=== PATIENT | female | born 1965 | race African-American/Black ===

== ENCOUNTER 2018-01-25 10:17 | Emergency (ER) | payer BC, SELFPAY ==
[2018-01-25 10:17] VITALS: BP 123/80; PULSE 91; RESP 14; TEMP 36.6; O2SAT 100; BMI 26.8
--- NOTE | 2018-01-25 10:42 | ED.VISSUMM ---
- ER Visit Summary Date of Service: 01/25/18 Chief Complaint: Back pain History of Present Illness: The patient is a 52 F with a 10 day history of right lower back pain that radiates down her right leg. She denies any known injury or change in activity. She states she does have sharp pain that radiates down her right leg. She feels a burning sensation. She has been taking idzh-gyi-jjihndh medications without improvement. Patient had no fever or chills. She has had no problems with bowel or bladder control. She has no abdominal pain. Physical Examination: Vital signs are unremarkable. Patient sitting on the side of the bed. She is in no acute distress. Head and neck examination is unremarkable. Heart is regular rate and rhythm. Lung sounds are clear. Abdomen is soft and nontender. Back examination reveals no midline thoracic or lumbar tenderness. She has reproducible tenderness in the right low lumbar paraspinals and over the right sciatic notch. Neuro exam reveals 2+ bilateral patellar reflexes with normal strength testing. She reports a very minimal decrease in sensation on testing of right leg versus left. Strong distal pulses are noted throughout. Test Results: [] Emergency Department Course and Treatment: Patient is given Naprosyn and prednisone here. She did drive herself to the emergency room. She be given a prescription for Naprosyn, Flexeril, lidocaine patches, and prednisone. Patient is to follow-up with her primary care physician in the next 1 week. She is to return for worsening symptoms or any other concerns. Treatment Plan: [] Disposition: Discharge Impression: Lumbar radiculopathy This note was generated with [employer] dictation software. It may contain incorrect words, spelling, and punctuation that were not noted in review of the chart prior to signing ED Disposition - Plan for ED Patient: Chief Complaint: Back Referrals: Dario Baptiste MD [Primary Care Provider] -
--- NOTE | 2018-01-25 10:45 | ED.DCSUM_ITS ---
- ER Visit Summary Date of Service: 01/25/18 Chief Complaint: Back pain History of Present Illness: The patient is a 52 F with a 10 day history of right lower back pain that radiates down her right leg. She denies any known injury or change in activity. She states she does have sharp pain that radiates down her right leg. She feels a burning sensation. She has been taking ybaz-pwu-dnxkokq medications without improvement. Patient had no fever or chills. She has had no problems with bowel or bladder control. She has no abdominal pain. Physical Examination: Vital signs are unremarkable. Patient sitting on the side of the bed. She is in no acute distress. Head and neck examination is unremarkable. Heart is regular rate and rhythm. Lung sounds are clear. Abdomen is soft and nontender. Back examination reveals no midline thoracic or lumbar tenderness. She has reproducible tenderness in the right low lumbar paraspinals and over the right sciatic notch. Neuro exam reveals 2+ bilateral patellar reflexes with normal strength testing. She reports a very minimal decrease in sensation on testing of right leg versus left. Strong distal pulses are noted throughout. Test Results: [] Emergency Department Course and Treatment: Patient is given Naprosyn and prednisone here. She did drive herself to the emergency room. She be given a prescription for Naprosyn, Flexeril, lidocaine patches, and prednisone. Patient is to follow-up with her primary care physician in the next 1 week. She is to return for worsening symptoms or any other concerns. Treatment Plan: [] Disposition: Discharge Impression: Lumbar radiculopathy This note was generated with [employer] dictation software. It may contain incorrect words, spelling, and punctuation that were not noted in review of the chart prior to signing ED Disposition - Plan for ED Patient: Chief Complaint: Back Referrals: Dario Baptiste MD [Primary Care Provider] -
--- NOTE | 2018-01-25 10:45 | ED.DEP ---
ED Disposition - Plan for ED Patient: Disposition: Home or Assisted Living Chief Complaint: Back Instructions: ED Sciatica Prescriptions: Naproxen [Naprosyn] 500 mg PO BID PRN #20 tablet Prednisone [Deltasone] 40 mg PO DAILY #10 tablet Lidocaine [Lidoderm] 1 each TP BID PRN #7 adh..patch PRN Reason: Pain Cyclobenzaprine [Flexeril] 10 mg PO TID PRN #20 tablet PRN Reason: Muscle Spasm Referrals: Dario Baptiste MD [Primary Care Provider] - 1 Week
[2018-01-25] MEDS: Naproxen 500 MG Tablet PO (10:53)
[2018-01-25] MEDS: predniSONE 20 MG Tablet 60 MG PO (10:53)
[2018-01-25 10:54] VITALS: BP 125/86; PULSE 82; RESP 16; O2SAT 98
== END 2018-01-25 10:58 | disposition home or self-care (01) ==
PROVIDERS: Emergency Provider Emergency Medicine; Family Provider Family Medicine; PCP Family Medicine
DX: M54.16 Radiculopathy, lumbar region (principal); Z72.0 Tobacco use; Z79.899 Other long term (current) drug therapy
CPT/HCPCS: 99282

== ENCOUNTER 2018-06-15 06:51 | Emergency (ER) | payer BC, SELFPAY ==
[2018-06-15 06:51] VITALS: BP 133/77; PULSE 116; RESP 16; TEMP 38; O2SAT 93; BMI 29.7
--- NOTE | 2018-06-15 07:03 | RAD_ITS ---
STUDY: X-RAY CHEST REASON FOR EXAM: Female, 53 years old. Cough, fever and general illness for one week. TECHNIQUE: PA and lateral views of the chest. COMPARISON: November 08, 2014. FINDINGS: The lungs are clear and hyperexpanded. There is no demonstrated pleural abnormality. There is borderline cardiomegaly. Normal mediastinum and kathy. There is prominence of the pulmonary hilar arteries without peripheral pulmonary vascular congestion. Normal visualized aortic arch and descending thoracic aorta. Normal visualized thoracic spine. Normal visualized ribs, clavicles, and shoulders. There is no demonstrated abnormality of the visualized soft tissue structures of the upper abdomen. RAD/Chest PA and Lateral IMPRESSION: No radiographic evidence of acute cardiopulmonary disease. Electronically Signed: Tala Patricia MD at 8:10 EDT , Service support ,
[2018-06-15 07:10] VITALS: PULSE 102; RESP 18
[2018-06-15] MEDS: Ipratropium/Albuterol Sulfate 3 ML AMPUL.NEB INHALATION (07:10)
[2018-06-15 07:35] LABS: Absolute Lymphocyte Count 2.77 X10^3/ul (0.83-4.51); Absolute Neutrophil Count 8.9 X10^3/uL (2.0-7.7); Basophil# 0.02 X10^3/uL; Basophil% 0.2 % (0-1); Hematocrit 39.1 % (37-47); Hemoglobin 13.4 g/dl (12.0-15.0); Lymphocyte # 2.77 X10^3/ul (4.0); Mean Corp Hgb Conc 34.3 g/gl (32-36); Mean Corpuscular Volume 96.3 fL (81-99); Mean Platelet Vol. 8.9 fl (6.2-12.0); Monocyte# 0.84 X10^3/uL; Monocyte% 6.7 % (0-10); Neutrophil # 8.91 X10^3/uL (2.7-7.7); Neutrophil % 70.8 % (47-70); Platelet Count 290 K/mm3 (150-450); RBC Distribution Width CV 13.6 % (11.6-14.6); RBC Distribution Width SD 47.1 fl (35.1-43.9); Red Blood Count 4.06 M/mm3 (4.2-5.4); White Blood Count 12.6 K/mm3 (4.4-11.0)
[2018-06-15 07:36] LABS: POSITIVE COUNT NO; POSITIVE DIFFERENTIAL NO; POSITIVE MORPHOLOGY NO
[2018-06-15] MEDS: Acetaminophen 500 MG Tablet 1000 MG PO (07:39)
[2018-06-15] MEDS: 0.9% Normal Saline 1,000 ML 1000 ML IV (07:40)
[2018-06-15 07:41] VITALS: BP 119/89; PULSE 99; RESP 17; O2SAT 98
[2018-06-15 07:44] LABS: Anion Gap 8 (5-15); BUN 11 mg/dL (7-18); BUN/Creat Ratio 13.6 RATIO (10-20); Calcium,Total 8.5 mg/dL (8.5-10.1); Chloride 103 mmol/L (98-107); Creatinine, Serum 0.81 mg/dL (0.55-1.02); EST Glomerular Filtration Rate 78 mL/min (>60); Est Glom Filt Rate - Afr Amer 94 mL/min (>60); Estimated Creatinine Clearance 62.07 ml/min; Glucose 103 mg/dL (74-106); Potassium 3.8 mmol/L (3.5-5.1); Sodium Level 139 mmol/L (136-145)
--- NOTE | 2018-06-15 08:02 | ED.VISSUMM ---
- ER Visit Summary Date of Service: 06/15/18 Chief Complaint: Feeling crappy History of Present Illness: The patient is a 53 F that has not been feeling well for over a week. She reports fevers, chills, sore throat, nausea, cough, and sputum. She has tried irng-jfe-bqjewpt remedies with minimal relief. She has a history of mitral valve prolapse and anemia. She is a smoker. Physical Examination: Blood pressure normal. Temperature 100.4 and heart rate 116. Respiratory rate 16 and 93% on room air. Patient appears well, sitting comfortably. Alert and oriented. HEENT exam unremarkable. Neck nontender with no lymphadenopathy. Heart slightly tachycardic but regular. Lungs show faint expiratory wheezing throughout all fry. Extremities nontender with no edema. Test Results: White count 12.6 otherwise CBC and BMP normal. Chest x-ray official read is pending, but there is no obvious abnormalities. Emergency Department Course and Treatment: Patient treated with a fluid bolus given her tachycardia. She also received a DuoNeb given her wheezing and some Tylenol given her low-grade fever. I believe this is an upper respiratory infection, but the patient is a smoker and her symptoms have persisted for over a week. Workup was pursued and fairly unremarkable. This is likely acute bronchitis. Given the duration of her symptoms, we did discuss antibiotics, and the patient will be placed on a course of doxycycline. Follow-up with her family doctor. Treatment Plan: As above Disposition: Discharged Impression: 1. Acute bronchitis This note was generated with [employer] dictation software. It may contain incorrect words, spelling, and punctuation that were not noted in review of the chart prior to signing ED Disposition - Plan for ED Patient: Chief Complaint: Cold Sx Referrals: Dario Baptiste MD [Primary Care Provider] -
--- NOTE | 2018-06-15 08:08 | ED.DCSUM_ITS ---
- ER Visit Summary Date of Service: 06/15/18 Chief Complaint: Feeling crappy History of Present Illness: The patient is a 53 F that has not been feeling well for over a week. She reports fevers, chills, sore throat, nausea, cough, and sputum. She has tried dqux-zso-ykbftia remedies with minimal relief. She has a history of mitral valve prolapse and anemia. She is a smoker. Physical Examination: Blood pressure normal. Temperature 100.4 and heart rate 116. Respiratory rate 16 and 93% on room air. Patient appears well, sitting comfortably. Alert and oriented. HEENT exam unremarkable. Neck nontender with no lymphadenopathy. Heart slightly tachycardic but regular. Lungs show faint expiratory wheezing throughout all fry. Extremities nontender with no edema. Test Results: White count 12.6 otherwise CBC and BMP normal. Chest x-ray official read is pending, but there is no obvious abnormalities. Emergency Department Course and Treatment: Patient treated with a fluid bolus given her tachycardia. She also received a DuoNeb given her wheezing and some Tylenol given her low-grade fever. I believe this is an upper respiratory infection, but the patient is a smoker and her symptoms have persisted for over a week. Workup was pursued and fairly unremarkable. This is likely acute bronchitis. Given the duration of her symptoms, we did discuss antibiotics, and the patient will be placed on a course of doxycycline. Follow-up with her family doctor. Treatment Plan: As above Disposition: Discharged Impression: 1. Acute bronchitis This note was generated with [employer] dictation software. It may contain incorrect words, spelling, and punctuation that were not noted in review of the chart prior to signing ED Disposition - Plan for ED Patient: Chief Complaint: Cold Sx Referrals: Dario Baptiste MD [Primary Care Provider] -
--- NOTE | 2018-06-15 08:08 | ED.DEP ---
ED Disposition - Plan for ED Patient: Chief Complaint: Cold Sx Instructions: ED Upper Resp Infec Abx Tx Prescriptions: Doxycycline Monohydrate 100 mg PO BID #20 cap Referrals: Dario Baptiste MD [Primary Care Provider] -
[2018-06-15 08:30] VITALS: BP 121/68; PULSE 108; RESP 17; O2SAT 98
== END 2018-06-15 08:34 | disposition home or self-care (01) ==
LOC: ED 07:34
PROVIDERS: Emergency Provider Emergency Medicine; Family Provider Family Medicine; PCP Family Medicine
DX: J20.9 Acute bronchitis, unspecified (principal); R00.0 Tachycardia, unspecified; F17.200 Nicotine dependence, unspecified, uncomplicated; Z86.2 Personal history of diseases of the blood and blood-forming organs and certain disorders involving the immune mechanism
CPT/HCPCS: 71046; 80048; 85025; 94640; 96360; 99284; J7030; A4216

== ENCOUNTER → 2020-04-19 09:16 | Outpatient (CLI) | payer BC, SELFPAY ==
[2020-02-16 08:35] VITALS: BMI 29.7
--- NOTE | 2020-04-19 09:26 | RAD_ITS ---
PROCEDURE: Fluoroscopic guided Hip Injection DATE: 04/19/2020. INDICATION: Female, 55 years old. Chronic hip pain. PHYSICIAN: Everett Stephens M.D. MEDICATIONS: 40 mg of KENALOG and 4 cc of 1% LIDOCAINE. 2% Lidocaine administered subcutaneously for local anesthesia. ACCESS SITE: Right hip. NEEDLE: 22-gauge spinal needle. FLUOROSCOPY TIME (if supplied): (0:41) minutes/seconds FINDINGS: The risks, benefits, and alternatives to the procedure were explained to the patient. The specific risks of bleeding, infection, and neurovascular injury were detailed and accepted. Witnessed informed consent was obtained. A 22-gauge spinal needle was positioned under radiographic fluoroscopic localization. Approximately 2 cc of ISOVUE-300 instilled for localization purposes. Medication was then injected. The patient tolerated the procedure well without any immediate complications. RAD/Inj/Asp Napoleon Jt Should/Hip/Knee IMPRESSION: 1. Successful fluoroscopic guided hip injection. Electronically Signed: Everett Stephens, at 10:19 EDT , Service support ,
== END ==
LOC: RAD 09:20
PROVIDERS: PCP Family Medicine; Referring Provider Family Medicine; Visit Provider Family Medicine
DX: M16.11 Unilateral primary osteoarthritis, right hip (principal)
CPT/HCPCS: 20610; 77002; Q9967

== ENCOUNTER 2020-08-09 21:05 | Emergency (ER) | payer BC, SELFPAY ==
[2020-02-16 08:35] VITALS: BMI 29.7
[2020-08-09 21:06] VITALS: BP 120/68; PULSE 82; RESP 18; TEMP 35.8; O2SAT 99; BMI 29.2
--- NOTE | 2020-08-09 22:40 | ED.DCSUM_ITS ---
History of Present Illness Chief Complaint: Back Informant: Patient Narrative: 55-year-old female presents with upper back pain which she feels is her lungs. She states that it is deeper than her back muscles. She does not have a cough, shortness of breath. She has no anterior chest pain. No DVT/PE risk factors or history. She also complains of nausea/vomiting. She not able to hold down food. She has epigastric pain. She states that she does not usually drink very much alcohol. She states she does not do drugs. She states that she is otherwise healthy. No cardiac history. She has no fevers, chills, loss of taste or smell, exposure to Covid?19 that she knows of. Past Medical History - Allergies and Home Meds Allergies/Adverse Reactions: Allergies bee venom protein (honey bee) Allergy (Verified 08/09/20 21:08) Hives tachycardia Penicillins Allergy (Verified 08/09/20 21:08) Hives Primary Care Physician: Dario Baptiste MD [Primary Care Provider] - Prior records reviewed: Yes Past Medical History: - - Denies significant medical history Surgical History: noncontributory, - - Surgery for ectopic Lives: Alone Smoking Status: Current some day smoker Alcohol: Occasional Drugs: None - Family History Maternal Family History: Reports: Unknown Review of Systems General: Denies: Chills, Fever, Sweats Eyes: Denies: Visual changes - bilaterally, Diplopia ENT: Denies: Rhinorrhea, Sore throat Cardiovascular: Reports: Chest pain - Upper back pain Respiratory: Denies: Dyspnea, Cough Gastrointestinal: Reports: Abdominal pain, Nausea, Vomiting Genitourinary: Denies: Dysuria, Hematuria Musculoskeletal: Denies: Myalgias, Arthralgias Skin: Denies: Rash, Abscess Neurological: Denies: Headache, Parasthesia, Numbness Physical Exam Vital Signs/Narrative: Vital Signs Temp Pulse Resp BP Pulse Ox 08/09/20 21:06 96.5 F L 82 18 120/68 99 Inital Vital Signs reviewed: Yes General: Well nourished, No Acute Distress Head: Normocephalic, Atraumatic Eyes: Perrl, EOMI. Negative for: Pale conjunctiva ENT: Moist mucous membranes, No rhinorrhea Cardiovascular: Regular rate, Regular rhythm Respiratory: No distress, CTA bilaterally Abdomen: Soft, Nondistended, Tender - Epigastric tenderness which is mild. Abd omen is nonperitoneal. Negative Keen sign. Back: Nontender. Negative for: Spinal tenderness Extremities: Nontender, No edema Skin: Normal color, No rash Neurological: Alert, Oriented x3 Psychological: Normal affect, Normal Mood Diagnostic/Tx/Re-eval Clinical Impression(s) from Imaging Studies Chest X-Ray 08/09/20 22:40 IMPRESSION: Normal x-ray examination of the chest. Electronically Signed: Beni Weaver MD at 23:37 EST , Service support , Laboratory Data 08/09/20 08/09/20 23:00 23:00 WBC 8.0 RBC 4.06 L Hgb 12.9 Hct 40.3 MCV 99.3 H MCH 31.8 MCHC 32.0 RDW Std Deviation 46.6 H RDW Coeff of Kyrie 12.7 Plt Count 296 MPV 8.5 Immature Gran % (Auto) 0.100 Neut % (Auto) 58.0 Lymph % (Auto) 35.3 [place] % (Auto) 5.9 Eos % (Auto) 0.6 Baso % (Auto) 0.1 Absolute Neuts (auto) 4.6 Absolute Lymphs (auto) 2.82 Nucleated RBC % 0 Sodium 141 Potassium 3.6 Chloride 108 H Carbon Dioxide 30.0 Anion Gap 3 L BUN 15 Creatinine 0.75 Estim Creat Clear Calc 68.46 Est GFR (MDRD) Af Amer 103 Est GFR (MDRD) Non-Af 85 BUN/Creatinine Ratio 20.1 H Glucose 107 H Calcium 8.7 Total Bilirubin 0.50 Direct Bilirubin 0.17 AST 14 L ALT 18 Alkaline Phosphatase 80 Troponin I < 0.015 Total Protein 7.3 Albumin 3.7 Globulin 3.6 Lipase 57 L - Rhythm Strip Rhythm Strip: Sinus Rhythm Rate: 61 - EKG Initial EKG Interpretation: Sinus Rhythm, No Acute Injury Pattern - Medical Decision Making Patient is having muscle spasms in her back however she is concerned that it is deeper and may be her lungs are involved. She does not have a cough or shortness of breath. She is not having any other chest pain. She is PERC nega tive. EKG is sinus rhythm at 61 bpm without signs of ischemia. Chest x-ray is negative. Lab work is all within normal limits. Given the patient's symptoms of muscle spasm I will discharge her home with Flexeril. She is given a work note for 3 days. Patient is discharged home in stable condition. Impression: 1. Muscle spasms ED Disposition - Plan for ED Patient: Instructions: ED Spasm Back No Trauma Prescriptions: Cyclobenzaprine HCl 10 mg PO TID PRN PRN #20 tab PRN Reason: Spasms Prescription Printed Referrals: Dario Baptiste MD [Primary Care Provider] -
--- NOTE | 2020-08-09 22:40 | RAD_ITS ---
STUDY: X-RAY CHEST REASON FOR EXAM: Female, 55 years old. Chest pain. TECHNIQUE: PA and lateral views of the chest. COMPARISON: June 15, 2018 FINDINGS: The lungs are clear and expanded. There is no demonstrated pleural abnormality. Normal size heart. Normal mediastinum and kathy. Normal visualized pulmonary arteries. Normal visualized aortic arch and descending thoracic aorta. Normal visualized thoracic spine. Normal visualized ribs, clavicles, and shoulders. There is no demonstrated abnormality of the visualized soft tissue structures of the upper abdomen. RAD/Chest 1 View (Portable) IMPRESSION: Normal x-ray examination of the chest. Electronically Signed: Beni Weaver MD at 23:37 EST , Service support ,
--- NOTE | 2020-08-09 22:40 | EKG12_ITS ---
Test Reason : DYSRHYTHMIA Blood Pressure : / mmHG Vent. Rate : 061 BPM Atrial Rate : 061 BPM P-R Int : 124 ms QRS Dur : 084 ms QT Int : 420 ms P-R-T Axes : 028 059 046 degrees QTc Int : 422 ms Normal sinus rhythm Minimal voltage criteria for LVH, may be normal variant Borderline ECG Confirmed by MARK NOBLES, JUNIOR ([id number]), digital editor LAYNE NICE ([id number]) on 08/12/2020 9:50:42 AM Referred By: YENIFER Confirmed By:JUNIOR FLORES MD
[2020-08-09] MEDS: Ondansetron 4 MG/2 ML Vial IV (23:00)
[2020-08-09] MEDS: 0.9% Normal Saline 1,000 ML 1000 ML IV (23:00)
[2020-08-09] MEDS: Morphine 4 MG/ML Syringe IV (23:01)
[2020-08-09 23:10] LABS: Absolute Lymphocyte Count 2.82 X10^3/uL (0.83-4.51); Absolute Neutrophil Count 4.6 X10^3/uL (2.0-7.7); Basophil# 0.01 X10^3/uL; Basophil% 0.1 % (0-1); Eosinophil# 0.05 X10^3/uL; Eosinophils% 0.6 % (0-5); Hematocrit 40.3 % (37-47); Hemoglobin 12.9 g/dL (12.0-15.0); Lymphocyte # 2.82 X10^3/ul (4.0); Lymphocyte % 35.3 % (19-41); Mean Corpuscular Hgb 31.8 pg (27.0-32.0); Mean Corpuscular Volume 99.3 fL (81-99); Mean Platelet Vol. 8.5 fl (6.2-12.0); Monocyte# 0.47 X10^3/uL; Monocyte% 5.9 % (0-10); NRBC Flagged by Analyzer 0 % (0-5); Neutrophil # 4.63 X10^3/uL (2.7-7.7); Platelet Count 296 K/mm3 (150-450); RBC Distribution Width CV 12.7 % (11.6-14.6); RBC Distribution Width SD 46.6 fl (35.1-43.9); Red Blood Count 4.06 M/mm3 (4.2-5.4)
[2020-08-09 23:29] LABS: AST(SGOT) 14 U/L (15-37); Alanine Aminotransfer ALT/SGPT 18 U/L (13-56); Albumin, Serum 3.7 g/dL (3.2-5.0); Alkaline Phosphatase 80 U/L (45-117); Anion Gap 3 (5-15); BUN 15 mg/dL (7-18); BUN/Creat Ratio 20.1 RATIO (10-20); Bilirubin, Direct 0.17 mg/dL (0.00-0.30); Calcium,Total 8.7 mg/dL (8.5-10.1); Chloride 108 mmol/L (98-107); Creatinine, Serum 0.75 mg/dL (0.55-1.02); EST Glomerular Filtration Rate 85 mL/min (>60); Est Glom Filt Rate - Afr Amer 103 mL/min (>60); Estimated Creatinine Clearance 68.46 ml/min; Globulin 3.6 g/dL (2.2-4.2); Glucose 107 mg/dL (74-106); Lipase 57 U/L (73-393); Potassium 3.6 mmol/L (3.5-5.1); Protein, Total 7.3 g/dL (6.4-8.2); Sodium Level 141 mmol/L (136-145)
[2020-08-10 00:14] VITALS: BP 123/68; PULSE 64; RESP 15; O2SAT 95
== END 2020-08-10 01:05 | disposition home or self-care (01) ==
LOC: ED 23:14
PROVIDERS: Emergency Provider Student in an Organized Health Care Education/Training Program; PCP Family Medicine
DX: M62.830 Muscle spasm of back (principal); R11.2 Nausea with vomiting, unspecified; R10.13 Epigastric pain; F17.200 Nicotine dependence, unspecified, uncomplicated
CPT/HCPCS: 71045; 80048; 80076; 83690; 84484; 85025; 93005; 96361; 96374; 96375; 99284; J7030; A4216; J2405

== ENCOUNTER → 2020-11-01 09:58 | Outpatient (CLI) | payer BC, SELFPAY ==
--- NOTE | 2020-11-01 10:10 | RAD_ITS ---
PROCEDURE: Fluoroscopic guided Hip Injection DATE: 11/01/2020. INDICATION: Female, 55 years old. Right pain. PHYSICIAN: Everett Stephens M.D. MEDICATIONS: 40 mg of KENALOG and 4 cc of 1% LIDOCAINE. 2% lidocaine administered subcutaneously for local anesthesia. ACCESS SITE: Right hip. NEEDLE: 22-gauge spinal needle. FLUOROSCOPY TIME (if supplied): (0:39) minutes/seconds. One image was obtained. FINDINGS: The risks, benefits, and alternatives to the procedure were explained to the patient. The specific risks of bleeding, infection, and neurovascular injury were detailed and accepted. Witnessed informed consent was obtained. A 22-gauge spinal needle was positioned under radiographic fluoroscopic localization. Approximately 2 cc of ISOVUE-300 instilled for localization purposes. Medication was then injected. The patient tolerated the procedure well without any immediate complications. RAD/Inj/Asp Napoleon Jt Should/Hip/Knee IMPRESSION: 1. Successful fluoroscopic guided hip injection. Electronically Signed: Everett Stephens MD at 10:42 EST , Service support ,
== END ==
LOC: RAD 10:00
PROVIDERS: PCP Family Medicine; Referring Provider Family Medicine; Visit Provider Family Medicine
DX: M16.11 Unilateral primary osteoarthritis, right hip (principal)
CPT/HCPCS: 20610; 77002

== ENCOUNTER 2021-02-11 23:05 | Emergency (ER) | payer BC, SELFPAY ==
[2021-02-11 23:06] VITALS: BP 133/76; PULSE 77; RESP 16; TEMP 36.6; O2SAT 99; BMI 28.3
--- NOTE | 2021-02-11 23:21 | EKG12_ITS ---
Test Reason : ABD PAIN Blood Pressure : / mmHG Vent. Rate : 057 BPM Atrial Rate : 057 BPM P-R Int : 120 ms QRS Dur : 086 ms QT Int : 428 ms P-R-T Axes : 052 046 048 degrees QTc Int : 416 ms Sinus bradycardia Minimal voltage criteria for LVH, may be normal variant Borderline ECG Confirmed by MARK NOBLES, JUNIOR ([id number]), editor at large LAYNE NICE ([id number]) on 02/13/2021 11:14:44 AM Referred By: SUJATHA Confirmed By:JUNIOR FLORES MD
--- NOTE | 2021-02-11 23:43 | EDS_ITS ---
HPI History of Present Illness Chief Complaint: Abd Pain Informant: patient Narrative Narrative: 55-year-old female presenting with abdominal pain for the past 3 days. She complains of nausea and vomiting. Denies diarrhea or constipation. She recently quit smoking and felt this may be related. She denies chest pain or shortness of breath. She complains of mid back pain. She denies injury. Denies urinary complaints. Denies PE/DVT risk factors. PFSH PFSH Medical History Anemia Arthritis Hay fever Hemorrhoids Knee pain MVP (mitral valve prolapse) Osteoarthritis tubal Home Medications famotidine [Pepcid] 20 mg PO BID #30 tab 02/12/21 [Rx Last Taken Unknown] Allergy/AdvReac Type Severity Reaction Status Date / Time bee venom protein (honey bee) Allergy Hives Verified 02/11/21 23:07 Penicillins Allergy Hives Verified 02/11/21 23:07 Surgical History Encounter for blood transfusion Status post surgical removal of both fallopian tubes Social History Smoking Status: Former smoker alcohol intake: current alcohol intake frequency: a few times a week ROS ROS ED Constitutional Constitutional ED: Denies fever(s) Eyes Eyes: Denies change in vision ENT ENT ED: Denies rhinorrhea or sore throat Cardiovascular Cardiovascular: Denies chest pain or palpitations Respiratory/Chest Respiratory/Chest: Denies cough or dyspnea Gastrointestinal Gastrointestinal: Reports abdominal pain, nausea and vomiting; Denies constipation or diarrhea Genitourinary Genitourinary ED: Denies dysuria Musculoskeletal Musculoskeletal: Reports back pain; Denies myalgias Integumentary Denies rash Neurologic Neurologic: Denies headache(s) Psychiatric Psychiatric: Denies suicidal thoughts EXAM Physical Exam Const Vital Signs: 02/11/21 23:06 02/12/21 02:04 Temperature 97.8 F Temperature Source Temporal Pulse Rate 77 65 Respiratory Rate 16 14 Blood Pressure 133/76 H 113/66 Blood Pressure Mean 95 81 Pulse Ox 99 98 Oxygen Delivery Method Room Air Room Air Positive well nourished and well developed General Appearance ED: well developed HEENT Reports normocephalic and head/scalp atraumatic Eyes PERRL and EOMs intact bilaterally Neck supple General: Negative for tenderness Chest Wall inspection of chest normal Resp normal respiratory effort and clear to auscultation bilaterally Cardio regular rate and regular rhythm GI non-distended Palpation: soft and tender epigastric; Negative for guarding or rebound tenderness present no CVA tenderness Back/Spine no CVA tenderness Cervical Spine: Negative for cervical spine tenderness Thoracic Spine / Upper Back: Negative for thoracic spinal tenderness or paraspinal muscle tenderness Lumbar Spine / Lower Back: Negative for lumbar spinal tenderness Extremity normal to inspection Neuro oriented x3 Sensorium / Orientation: alert Psych mental status grossly normal Skin no rashes or lesions noted MDM MDM MDM Narrative Medical decision making narrative: Patient was given morphine, Zofran IV. Labs were reviewed. On reevaluation she is complaining of back pain and is requesting muscle relaxer. She was given Valium with improvement. CT chest abdomen pelvis shows slightly prominent pancreatic duct otherwise unremarkable. She is advised to follow-up with GI. She is given a prescription for Pepcid. She is advised to return to the ED for worsening complaints. Lab Data Attestation: I reviewed the patient's lab results. Labs: Laboratory Results - last 24 hr 02/11/21 02/11/21 02/11/21 23:50 23:50 23:50 WBC 8.4 RBC 4.35 Hgb 13.9 Hct 42.5 MCV 97.7 MCH 32.0 MCHC 32.7 RDW Std Deviation 47.0 H RDW Coeff of Kyrie 13.1 Plt Count 339 MPV 8.8 Immature Gran % (Auto) 0.200 Neut % (Auto) 56.4 Lymph % (Auto) 36.5 [place] % (Auto) 5.8 Eos % (Auto) 0.7 Baso % (Auto) 0.4 Absolute Neuts (auto) 4.8 Absolute Lymphs (auto) 3.07 Nucleated RBC % 0 D-Dimer Quant (PE/DVT) 0.35 Sodium 140 Potassium 3.5 Chloride 105 Carbon Dioxide 29.0 Anion Gap 6 BUN 7 Creatinine 0.80 Estim Creat Clear Calc 64.18 Est GFR (MDRD) Af Amer 94 Est GFR (MDRD) Non-Af 78 BUN/Creatinine Ratio 8.7 L Glucose 115 H Calcium 8.8 Total Bilirubin 0.50 AST 18 ALT 18 Alkaline Phosphatase 79 Troponin I < 0.015 Total Protein 7.4 Albumin 3.6 Globulin 3.8 Albumin/Globulin Ratio 0.9 Lipase 59 L Radiography Diagnostic Testing: Radiology Impression Abdomen/Pelvis CT 02/12/21 00:52 IMPRESSION: There is slight prominence of the pancreatic duct however, no definite evidence of acute pancreatitis. Small hiatal hernia. Otherwise, unremarkable exam. Electronically Signed: Minh Joya DO at 1:51 EDT Tel , Service support , Chest CTA 02/12/21 00:52 IMPRESSION: Normal CTA chest examination, without a demonstrated pulmonary embolism or arterial dissection. Lungs are clear Electronically Signed: Minh Joya DO at 1:49 EDT Tel , Service support , EKG Initial EKG: Attestation: I personally reviewed and interpreted this EKG as follows: Interpretation: Sinus Rhythm and No Acute Injury Pattern Prior EKG tracings: available for review Prior: Unchanged Discharge Plan Triage Chief Complaint: Abd Pain ED Provider: Milly Dillard Dx/Rx/DC Orders Clinical Impression: Epigastric abdominal pain Instructions: ED Abdominal Pain Unkn Cause Fem Prescriptions: New famotidine [Pepcid] 20 mg tablet 20 mg PO BID Qty: 30 RF: 0 Stand Alone Forms: ED Work / School Excuse Primary Care Provider: Dario Baptiste Referrals: Dario Baptiste MD [Primary Care Provider] - Gurjit Kim MD [NON-STAFF] - Disposition Disposition: Home, self care
[2021-02-11] MEDS: Morphine 4 MG/ML Syringe IV (23:47)
[2021-02-11] MEDS: Ondansetron 4 MG/2 ML Vial IV (23:47)
[2021-02-11 23:57] LABS: Absolute Lymphocyte Count 3.07 X10^3/uL (0.83-4.51); Absolute Neutrophil Count 4.8 X10^3/uL (2.0-7.7); Basophil# 0.03 X10^3/uL; Basophil% 0.4 % (0-1); Eosinophil# 0.06 X10^3/uL; Eosinophils% 0.7 % (0-5); Hematocrit 42.5 % (37-47); Hemoglobin 13.9 g/dL (12.0-15.0); Lymphocyte # 3.07 X10^3/ul (0.83-4.51); Lymphocyte % 36.5 % (19-41); Mean Corp Hgb Conc 32.7 g/dL (32-36); Mean Corpuscular Volume 97.7 fL (81-99); Mean Platelet Vol. 8.8 fl (6.2-12.0); Monocyte# 0.49 X10^3/uL; Monocyte% 5.8 % (0-10); NRBC Flagged by Analyzer 0 % (0-5); Neutrophil # 4.75 X10^3/uL (2.7-7.7); Neutrophil % 56.4 % (47-70); Platelet Count 339 K/mm3 (150-450); RBC Distribution Width CV 13.1 % (11.6-14.6); Red Blood Count 4.35 M/mm3 (4.2-5.4); White Blood Count 8.4 K/mm3 (4.4-11.0)
[2021-02-12 00:11] LABS: D-Dimer Quantitative (DVT/PE) 0.35 FEU/ug/m (0.27-0.49)
[2021-02-12 00:18] LABS: ALB/GLOB Ratio 0.9 RATIO (0.9-2.4); AST(SGOT) 18 U/L (15-37); Alanine Aminotransfer ALT/SGPT 18 U/L (13-56); Albumin, Serum 3.6 g/dL (3.2-5.0); Alkaline Phosphatase 79 U/L (45-117); Anion Gap 6 (5-15); BUN 7 mg/dL (7-18); BUN/Creat Ratio 8.7 RATIO (10-20); Calcium,Total 8.8 mg/dL (8.5-10.1); Chloride 105 mmol/L (98-107); EST Glomerular Filtration Rate 78 mL/min (>60); Est Glom Filt Rate - Afr Amer 94 mL/min (>60); Estimated Creatinine Clearance 64.18 ml/min; Globulin 3.8 g/dL (2.2-4.2); Glucose 115 mg/dL (74-106); Lipase 59 U/L (73-393); Potassium 3.5 mmol/L (3.5-5.1); Protein, Total 7.4 g/dL (6.4-8.2); Sodium Level 140 mmol/L (136-145)
--- NOTE | 2021-02-12 00:52 | CT_ITS ---
STUDY: CT ABDOMEN AND PELVIS WITH CONTRAST REASON FOR EXAM: Female, 55 years old. epigastric pain RADIATION DOSAGE (If Supplied By Facility): CTDIvol = ( 16.25 ) mGy, DLP = ( 999.91 ) mGycm TECHNIQUE: Transaxial images were obtained from the dome of the diaphragm to the symphysis pubis without oral contrast. IV 100mL Isovue-370 was administered. Sagittal and coronal images were reconstructed. Individualized dose optimization techniques were used for this CT. COMPARISON: None. FINDINGS: The visualized lung bases are unremarkable. The visualized portions of the heart are within normal limits. Normal liver. Normal gallbladder and extrahepatic biliary system. Normal spleen. Normal pancreas. Slight prominence of the pancreatic duct however, no definite evidence of acute pancreatitis. Normal bilateral adrenal glands. Normal right kidney. Normal left kidney. There is a small hiatal hernia. Normal small intestine. Normal colon. The appendix is visualized and appears normal. Normal abdominal aorta. Normal inferior vena cava. Normal retroperitoneum. Normal urinary bladder. There is atrophy of the uterus. Normal abdominal wall. Normal osseous structures. CT/Abdomen/Pelvis W IV Cont ONLY IMPRESSION: There is slight prominence of the pancreatic duct however, no definite evidence of acute pancreatitis. Small hiatal hernia. Otherwise, unremarkable exam. Electronically Signed: Minh Joya DO at 1:51 EDT Tel , Service support ,
--- NOTE | 2021-02-12 00:52 | CT_ITS ---
STUDY: CTA CHEST REASON FOR EXAM: Female, 55 years old. r/o dissection RADIATION DOSAGE (If Supplied By Facility): CTDIvol = ( 16.25 ) mGy, DLP = ( 999.91 ) mGycm TECHNIQUE: The examination was performed with the intravenous administration of IV 100mL Isovue-370. Post-processing of the angiographic images was performed, with multiplanar reformation and 3D reconstruction. Individualized dose optimization techniques were used for this CT. COMPARISON: None. FINDINGS: Normal enhancement of the main pulmonary artery and right and left pulmonary arteries. Normal enhancement of the bilateral peripheral pulmonary arteries. There is no demonstrated pulmonary embolism. Normal thoracic aorta and visualized great vessels. There is no demonstrated aortic dissection. Normal heart and pericardium. Normal mediastinum. Normal hilar regions. Normal visualized trachea and bronchi. The lungs are well expanded. Normal pulmonary parenchyma. Normal pleura. Normal chest wall structures. Normal osseous structures. Normal visualized upper abdomen. CT/CTA Chest W/WO Contrast IMPRESSION: Normal CTA chest examination, without a demonstrated pulmonary embolism or arterial dissection. Lungs are clear Electronically Signed: Minh Joya DO at 1:49 EDT Tel , Service support ,
[2021-02-12] MEDS: diazePAM 5 MG Tablet PO (01:00)
[2021-02-12 02:04] VITALS: BP 113/66; PULSE 65; RESP 14; O2SAT 98
[2021-02-12 02:19] VITALS: BP 112/77; PULSE 63; RESP 16; O2SAT 97
== END 2021-02-12 02:20 | disposition home or self-care (01) ==
PROVIDERS: Emergency Provider Emergency Medicine; PCP Family Medicine
DX: R10.13 Epigastric pain (principal); R11.2 Nausea with vomiting, unspecified; M54.6 Pain in thoracic spine; M19.90 Unspecified osteoarthritis, unspecified site; I34.1 Nonrheumatic mitral (valve) prolapse; Z87.891 Personal history of nicotine dependence
CPT/HCPCS: 71275; 74177; 80053; 83690; 84484; 85025; 85379; 93005; 96374; 96375; 99285; Q9967; A4216; J2405

== ENCOUNTER 2021-02-18 05:18 | Emergency (ER) | payer BC, SELFPAY ==
[2021-02-18 05:18] VITALS: BP 133/89; PULSE 85; RESP 18; TEMP 36.7; O2SAT 98; BMI 27.6
--- NOTE | 2021-02-18 05:37 | RAD_ITS ---
HISTORY: chest pain EXAM: XR Chest 1 View: COMPARISON: August 09, 2020 FINDINGS: # of images incl. paperwork: 1 Lungs are clear. Heart is not enlarged. No acute osseous pathology perceived. Pulmonary vascularity is distinct. No effusions. RAD/Chest 1 View (Portable) IMPRESSION: Normal. at 0621 Reported and signed by: Hitesh Carreno MD Electronically Signed: Hitesh Carreno MD at 6:20 EDT Tel , Service support ,
--- NOTE | 2021-02-18 05:38 | EKG12_ITS ---
Test Reason : SOB Blood Pressure : / mmHG Vent. Rate : 083 BPM Atrial Rate : 083 BPM P-R Int : 112 ms QRS Dur : 094 ms QT Int : 364 ms P-R-T Axes : 072 070 063 degrees QTc Int : 427 ms Sinus rhythm with Premature supraventricular complexes Otherwise normal ECG Confirmed by YON NOBLES, NARGIS ([id number]), telegraph editor LAYNE NICE ([id number]) on 02/20/2021 12:18:40 PM Referred By: Confirmed By:NARGIS MARVIN MD
--- NOTE | 2021-02-18 05:39 | EX.ED.DYSGE1 ---
HPI History of Present Illness Chief Complaint: Shortness of Breath Informant: patient Narrative Narrative: 55-year-old female presents for the evaluation of shortness of breath. She tells me 8 days ago she quit smoking. She states that she developed squeezing sensation of her chest. Nausea vomiting. Back pain from the chest being squeezed. She states the vomiting has subsided but not the nausea she states that the pain is causing her to be nauseated and so she is not eating. Therefore she is not vomiting anymore. She states she came to the emergency room several days ago. Review of the chart show that she had a CTA of her chest and a CT of her abdomen pelvis. She had negative blood work including D-dimer and troponin. She has a follow-up appointment this coming . She states she is not any better and believes that she was misdiagnosed. She denies any cough. No rhinorrhea no sore throat. She notes some chills but no fever. Symptoms have been constant. PFSH PFS Medical History Anemia Arthritis Hay fever Hemorrhoids Knee pain MVP (mitral valve prolapse) Osteoarthritis tubal Home Medications famotidine [Pepcid] 20 mg PO BID #30 tab 02/12/21 [Rx Last Taken Unknown] albuterol sulfate [Ventolin HFA] 2 puff INHALATION Q4H PRN PRN #1 inhaler 02/18/21 [Rx Last Taken Unknown] ondansetron 4 mg PO Q6H PRN PRN #15 tab 02/18/21 [Rx Last Taken Unknown] Allergy/AdvReac Type Severity Reaction Status Date / Time bee venom protein (honey bee) Allergy Hives Verified 02/11/21 23:07 Penicillins Allergy Hives Verified 02/11/21 23:07 Surgical History Encounter for blood transfusion Status post surgical removal of both fallopian tubes Social History Smoking Status: Former smoker alcohol intake: current alcohol intake frequency: a few times a week ROS ROS ED Constitutional Constitutional ED: Denies chills or weight loss Eyes Eyes: Denies change in vision or diplopia ENT ENT ED: Denies ear pain, rhinorrhea or sore throat Cardiovascular Cardiovascular: Reports chest pain; Denies orthopnea, palpitations or racing heartbeat Respiratory/Chest Respiratory/Chest: Reports dyspnea; Denies cough or orthopnea Gastrointestinal Gastrointestinal: Reports nausea and vomiting; Denies abdominal pain or diarrhea Genitourinary Genitourinary ED: Denies dysuria, hematuria or urinary frequency Musculoskeletal Musculoskeletal: Denies arthralgias or myalgias Integumentary Denies abscess or rash Neurologic Neurologic: Denies headache(s) or weakness Psychiatric Psychiatric: Denies anxiety, depression, suicidal ideation or suicidal thoughts Endocrine Endocrinology: Denies polydipsia, polyphagia or polyuria Allergic/Immunologic Allergic/Immunologic ED: Denies mouth swelling, tongue swelling or urticaria EXAM Physical Exam Const Vital Signs: 02/18/21 05:18 02/18/21 05:22 02/18/21 05:51 Temperature 98.1 F Temperature Source Oral Pulse Rate 85 93 Respiratory Rate 18 18 Respiratory Effort Normal Respiratory Depth Normal Respiratory Pattern Normal Blood Pressure 133/89 H Blood Pressure Mean 103 Pulse Ox 98 Oxygen Delivery Method Room Air 02/18/21 06:44 Temperature Temperature Source Pulse Rate 75 Respiratory Rate 16 Respiratory Effort Respiratory Depth Respiratory Pattern Blood Pressure Blood Pressure Mean Pulse Ox 98 Oxygen Delivery Method Room Air Positive well nourished and well developed General Appearance ED: well developed HEENT Reports normocephalic, head/scalp atraumatic and moist mucous membranes Eyes PERRL and EOMs intact bilaterally Neck no lymphadenopathy, supple and no JVD Resp clear to auscultation bilaterally Resp Narrative: Patient has minimal respiratory effort. When asked to take a deep breath she states that she cannot because her lungs are being squeezed. As I take my stethoscope away she takes a bigger breath. Therefore my auscultatory exam is limited Cardio regular rate, regular rhythm and no murmurs GI normal to inspection, nondistended, normoactive bowel sounds and non-tender Palpation: soft Back/Spine no CVA tenderness and normal ROM Extremity normal to inspection General Extremety ED: Negative for edema General Extremity: Negative for edema Neuro oriented x3 and CN's II-XII intact bilaterally Sensorium / Orientation: alert Motor Exam: strength 5/5 throughout Psych mental status grossly normal Mood & Affect: Negative for depressed or tearful Skin no rashes or lesions noted and no wounds MDM MDM MDM Narrative Medical decision making narrative: Patient's labs are essentially normal and unchanged from prior. Chest x-ray to my interpretation shows no acute process and radiology concurs. She had no events on the monitor. She received a DuoNeb. She states that she has had a couple episodes since she has been here and when asked her what that means she states almost feels like she gets some spasms in her lungs. I cannot fully explain her symptoms tonight. I do not see anything emergent. She has follow-up arranged in 2 days. I will write for albuterol MDI since she got some mild improvement with the DuoNeb and some Zofran. Lab Data Attestation: I reviewed the patient's lab results. Labs: Laboratory Results - last 24 hr 02/18/21 02/18/21 02/18/21 06:10 06:10 06:10 WBC 10.7 RBC 4.52 Hgb 14.7 Hct 44.8 MCV 99.1 H MCH 32.5 H MCHC 32.8 RDW Std Deviation 46.7 H RDW Coeff of Kyrie 12.8 Plt Count 341 MPV 8.7 Immature Gran % (Auto) 0.200 Neut % (Auto) 68.1 Lymph % (Auto) 27.7 [place] % (Auto) 3.6 Eos % (Auto) 0.2 Baso % (Auto) 0.2 Absolute Neuts (auto) 7.3 Absolute Lymphs (auto) 2.97 Nucleated RBC % 0 D-Dimer Quant (PE/DVT) Cancelled Sodium Cancelled Potassium Cancelled Chloride Cancelled Carbon Dioxide Cancelled Anion Gap Cancelled BUN Cancelled Creatinine Cancelled Estim Creat Clear Calc Cancelled Est GFR (MDRD) Af Amer Cancelled Est GFR (MDRD) Non-Af Cancelled BUN/Creatinine Ratio Cancelled Glucose Cancelled Calcium Cancelled Total Bilirubin Cancelled AST Cancelled ALT Cancelled Alkaline Phosphatase Cancelled Troponin I Cancelled Total Protein Cancelled Albumin Cancelled Globulin Cancelled Albumin/Globulin Ratio Cancelled Lipase Cancelled 02/18/21 02/18/21 06:40 06:40 WBC RBC Hgb Hct MCV MCH MCHC RDW Std Deviation RDW Coeff of Kyrie Plt Count MPV Immature Gran % (Auto) Neut % (Auto) Lymph % (Auto) [place] % (Auto) Eos % (Auto) Baso % (Auto) Absolute Neuts (auto) Absolute Lymphs (auto) Nucleated RBC % D-Dimer Quant (PE/DVT) 0.36 Sodium 137 Potassium 4.5 Chloride 103 Carbon Dioxide 27.0 Anion Gap 7 BUN 9 Creatinine 0.70 Estim Creat Clear Calc 73.35 Est GFR (MDRD) Af Amer 111 Est GFR (MDRD) Non-Af 91 BUN/Creatinine Ratio 12.9 Glucose 105 Calcium 9.2 Total Bilirubin 0.50 AST 21 ALT 20 Alkaline Phosphatase 85 Troponin I < 0.015 Total Protein 7.8 Albumin 3.4 Globulin 4.4 H Albumin/Globulin Ratio 0.8 L Lipase 48 L Radiography Diagnostic Testing: Radiology Impression Chest X-Ray 02/18/21 05:37 IMPRESSION: Normal. at 0621 Reported and signed by: Hitesh Carreno MD Electronically Signed: Hitesh Carreno MD at 6:20 EDT Tel , Service support , EKG Initial EKG: Attestation: I personally reviewed and interpreted this EKG as follows: Comments: EKG shows a sinus rhythm with premature supraventricular complex. No significant change from prior. Discharge Plan Triage Chief Complaint: Shortness of Breath ED Provider: Fabrice Ku Dx/Rx/DC Orders Clinical Impression: Acute dyspnea Instructions: ED Dyspnea Prescriptions: New ondansetron [ondansetron] 4 MG tablet 4 mg PO Q6H PRN PRN (Reason: Nausea) Qty: 15 RF: 0 albuterol sulfate [Ventolin HFA] 1 INHALER inhaler 2 puff inhalation Q4H PRN PRN (Reason: Wheezing) Qty: 1 RF: 0 No Action famotidine [Pepcid] 20 mg tablet 20 mg PO BID Qty: 30 RF: 0 Primary Care Provider: Dario Baptiste Referrals: Dario Baptiste MD [Primary Care Provider] - Keep Angelique appointment Disposition Disposition: Home, self care
[2021-02-18 05:51] VITALS: PULSE 93; RESP 18
[2021-02-18] MEDS: Ipratropium/Albuterol Sulfate 3 ML AMPUL.NEB INHALATION (05:51)
[2021-02-18 06:13] LABS: Absolute Lymphocyte Count 2.97 X10^3/uL (0.83-4.51); Absolute Neutrophil Count 7.3 X10^3/uL (2.0-7.7); Basophil# 0.02 X10^3/uL; Basophil% 0.2 % (0-1); Eosinophil# 0.02 X10^3/uL; Eosinophils% 0.2 % (0-5); Hematocrit 44.8 % (37-47); Hemoglobin 14.7 g/dL (12.0-15.0); Lymphocyte # 2.97 X10^3/ul (0.83-4.51); Lymphocyte % 27.7 % (19-41); Mean Corp Hgb Conc 32.8 g/dL (32-36); Mean Corpuscular Hgb 32.5 pg (27.0-32.0); Mean Corpuscular Volume 99.1 fL (81-99); Mean Platelet Vol. 8.7 fl (6.2-12.0); Monocyte# 0.39 X10^3/uL; Monocyte% 3.6 % (0-10); NRBC Flagged by Analyzer 0 % (0-5); Neutrophil # 7.32 X10^3/uL (2.7-7.7); Neutrophil % 68.1 % (47-70); Platelet Count 341 K/mm3 (150-450); RBC Distribution Width CV 12.8 % (11.6-14.6); RBC Distribution Width SD 46.7 fl (35.1-43.9); Red Blood Count 4.52 M/mm3 (4.2-5.4); White Blood Count 10.7 K/mm3 (4.4-11.0)
[2021-02-18] MEDS: 0.9% Normal Saline 1,000 ML 1000 ML IV (06:30)
[2021-02-18 06:44] VITALS: PULSE 75; RESP 16; O2SAT 98
[2021-02-18 06:59] LABS: D-Dimer Quantitative (DVT/PE) 0.36 FEU/ug/m (0.27-0.49)
[2021-02-18 07:07] LABS: ALB/GLOB Ratio 0.8 RATIO (0.9-2.4); AST(SGOT) 21 U/L (15-37); Alanine Aminotransfer ALT/SGPT 20 U/L (13-56); Albumin, Serum 3.4 g/dL (3.2-5.0); Alkaline Phosphatase 85 U/L (45-117); Anion Gap 7 (5-15); BUN 9 mg/dL (7-18); BUN/Creat Ratio 12.9 RATIO (10-20); Calcium,Total 9.2 mg/dL (8.5-10.1); Chloride 103 mmol/L (98-107); EST Glomerular Filtration Rate 91 mL/min (>60); Est Glom Filt Rate - Afr Amer 111 mL/min (>60); Estimated Creatinine Clearance 73.35 ml/min; Globulin 4.4 g/dL (2.2-4.2); Glucose 105 mg/dL (74-106); Lipase 48 U/L (73-393); Potassium 4.5 mmol/L (3.5-5.1); Protein, Total 7.8 g/dL (6.4-8.2); Sodium Level 137 mmol/L (136-145)
[2021-02-18 07:12] VITALS: O2SAT 95
[2021-02-18 07:32] VITALS: BP 122/73; PULSE 82; RESP 16; O2SAT 96
== END 2021-02-18 07:35 | disposition home or self-care (01) ==
PROVIDERS: Emergency Provider Emergency Medicine; PCP Family Medicine
DX: R06.00 Dyspnea, unspecified (principal); Z87.891 Personal history of nicotine dependence
CPT/HCPCS: 71045; 80053; 83690; 84484; 85025; 85379; 93005; 94640; 99285; J7030; A4216

== ENCOUNTER 2022-09-01 06:32 | Emergency (ER) | payer OTHER, BC, SELFPAY ==
[2022-09-01 06:33] VITALS: BP 135/80; PULSE 88; RESP 18; TEMP 35.9; O2SAT 99; BMI 30.9
--- NOTE | 2022-09-01 06:40 | RAD_ITS ---
INDICATION: injury EXAMINATION/TECHNIQUE: X-RAY - LEFT XR Hand Min 3 Views COMPARISON: None. FINDINGS: 3 views of the left hand were obtained. No acute fracture is identified. No dislocation. RAD/Hand Min 3 Views IMPRESSION: No acute fracture identified. Electronically Signed: Osei Abel MD at 7:14 EST ,
--- NOTE | 2022-09-01 06:41 | EDS_ITS ---
HPI History of Present Illness Chief Complaint: Upper Extremity Injury Informant: patient Occured/Mechanism Mechanism/Context: Yes direct blow and Yes work related Onset/Context/Timing Onset: Today (JPTA) Context: Sudden Onset Timing: Continuous Quality of Pain: Aching Location: left hand Current Severity: Mild Maximum Severity: Moderate Worsened by: moving, palpation Relieved by: remaining still Associated Symptoms Associated Symptoms: Negative for Parasthesia, Weakness or Loss of Funtion Narrative Narrative: 57-year-old [id number] female states she was working her small machine press at work, she states she took safety blocks out and the press came down on her left hand injuring the ulnar aspect. She denies pain in her fingers or the wrist. No other injury. PFSH PFSH Medical History Anemia Arthritis Hay fever Hemorrhoids Knee pain MVP (mitral valve prolapse) Osteoarthritis tubal Home Medications famotidine 20 mg tablet (Pepcid) 20 mg PO BID #30 tabs 02/12/21 [Rx Last Taken Unknown] albuterol sulfate 90 mcg/actuation aerosol inhaler (Ventolin HFA) 2 puff inhalation Q4H PRN PRN Wheezing ##1 02/18/21 [Rx Last Taken Unknown] ondansetron 4 mg disintegrating tablet 4 mg PO Q6H PRN PRN Nausea #15 tabs 02/18/21 [Rx Last Taken Unknown] Allergy/AdvReac Type Severity Reaction Status Date / Time bee venom protein (honey bee) Allergy Hives Verified 09/01/22 06:36 Penicillins Allergy Hives Verified 09/01/22 06:36 Surgical History Encounter for blood transfusion Status post surgical removal of both fallopian tubes Social History Smoking Status: Current every day smoker tobacco type: cigarettes alcohol intake: current alcohol intake frequency: a few times a week ROS ROS ED Constitutional Constitutional ED: Denies chills or fever(s) Musculoskeletal Musculoskeletal: Reports extremity pain; Denies neck pain Integumentary Denies Abrasions, rash or wounds Neurologic Neurologic: Denies paresthesias or weakness EXAM Physical Exam Const Vital Signs: 09/01/22 06:33 Temperature 96.7 F L Temperature Source Temporal Pulse Rate 88 Respiratory Rate 18 Blood Pressure 135/80 H Blood Pressure Mean 98 Pulse Ox 99 Oxygen Delivery Method Room Air Positive well nourished and well developed General Appearance ED: well developed and NAD Neck full ROM and supple Back/Spine normal ROM and normal to inspection Extremity normal to inspection Extremity Narrative: Left hand: No deformities. Tender along the fifth metacarpal, the middle and distal thirds of it. Fingers nontender. Brisk cap refill. No skin injury. Neurovascularly intact distally all digits. FDS, FDP, and extensor intact all digits. Nontender at the wrist, full range of motion. Neuro oriented x3, no focal motor deficits and no sensory deficits noted Sensorium / Orientation: alert Psych mental status grossly normal and thought process normal Skin no wounds Rashes: no rashes MDM MDM MDM Narrative Medical decision making narrative: X-rays of the left hand obtained, 3 views on my interpretation negative for any acute fractures. She was given ibuprofen and an ice pack, and reassured. She can range her fingers fully, but she is having some difficulty, likely because the injury is acute. She was given appropriate restrictions until she can follow-up with [facility] and be released, but I am okay with her going back to work today without using machines. Discharge Plan Triage Chief Complaint: Upper Extremity Injury ED Provider: Joseph Pena Dx/Rx/DC Orders Clinical Impression: Contusion of hand, left Instructions: ED Hand Contusion Prescriptions: No Action famotidine [Pepcid] 20 mg tablet 20 mg PO BID Qty: 30 0RF ondansetron [ondansetron] 4 MG tablet 4 mg PO Q6H PRN PRN (Reason: Nausea) Qty: 15 0RF albuterol sulfate [Ventolin HFA] 1 INHALER inhaler 2 puff inhalation Q4H PRN PRN (Reason: Wheezing) Qty: 1 0RF Rx Instructions: Dispense with spacer Stand Alone Forms: Work Status Form Primary Care Provider: Dario Baptiste Referrals: [facility] [Group of Physicians] - 1 Day for another exam (call for appt) Dario Baptiste MD [Primary Care Provider] - Disposition Disposition: Home, Self Care
[2022-09-01] MEDS: Ibuprofen 600 MG Tablet PO (07:06)
== END 2022-09-01 07:13 | disposition home or self-care (01) ==
LOC: ED 07:04
PROVIDERS: Emergency Provider Emergency Medicine; PCP Family Medicine; Visit Provider Emergency Medicine
DX: S60.222A Contusion of left hand, initial encounter (principal); F17.210 Nicotine dependence, cigarettes, uncomplicated; Y99.0 Civilian activity done for income or pay; W31.1XXA Contact with metalworking machines, initial encounter
CPT/HCPCS: 73130; 99282

== ENCOUNTER 2024-02-17 11:36 | Emergency (ER) | payer OTHER, SELFPAY ==
[2024-02-17 11:37] VITALS: BP 153/74; PULSE 69; RESP 15; TEMP 36.2; O2SAT 100; BMI 28.3
[2024-02-17 12:10] VITALS: BP 124/68; PULSE 66; RESP 13; O2SAT 99
--- NOTE | 2024-02-17 12:24 | EKG12_ITS ---
Test Reason : CHEST PAIN Blood Pressure : / mmHG Vent. Rate : 065 BPM Atrial Rate : 065 BPM P-R Int : 130 ms QRS Dur : 088 ms QT Int : 394 ms P-R-T Axes : 055 051 035 degrees QTc Int : 409 ms Normal sinus rhythm Normal ECG Confirmed by Earl Sosa ([id number]), scientific publications editor HARMONY FARRIS ([id number]) on 02/21/2024 6:58:37 AM Referred By: Confirmed By:Earl Sosa
[2024-02-17 12:34] VITALS: O2SAT 97
--- NOTE | 2024-02-17 12:40 | RAD_ITS ---
STUDY: X-RAY CHEST REASON FOR EXAM: Female, 58 years old. Chest pain TECHNIQUE: PA and lateral views of the chest. COMPARISON: Comparison is made with prior study dated February 18, 2021. FINDINGS: EKG electrodes are seen. Hyperinflation. The lungs are clear. There is no demonstrated pleural abnormality. Normal size heart. Normal mediastinum and kathy. Normal visualized pulmonary arteries. Normal visualized aortic arch and descending thoracic aorta. Normal visualized thoracic spine. Normal visualized ribs, clavicles, and shoulders. There is no demonstrated abnormality of the visualized soft tissue structures of the upper abdomen. RAD/Chest PA and Lateral IMPRESSION: Normal x-ray examination of the chest. Electronically Signed: Everett Stephens MD at 13:05 EDT ,
[2024-02-17 12:58] LABS: Absolute Lymphocyte Count 3.86 X10^3/uL (0.83-4.51); Absolute Neutrophil Count 2.4 X10^3/uL (2.0-7.7); Basophil# 0.01 X10^3/uL; Basophil% 0.2 % (0-1); Eosinophil# 0.05 X10^3/uL; Eosinophils% 0.8 % (0-5); Hematocrit 39.3 % (37-47); Hemoglobin 12.7 g/dL (12.0-15.0); Lymphocyte # 3.86 X10^3/ul (0.83-4.51); Lymphocyte % 58.8 % (19-41); Mean Corp Hgb Conc 32.3 g/dL (32-36); Mean Corpuscular Hgb 31.6 pg (27.0-32.0); Mean Corpuscular Volume 97.8 fL (81-99); Mean Platelet Vol. 9.5 fl (6.2-12.0); Monocyte# 0.28 X10^3/uL; Monocyte% 4.3 % (0-10); NRBC Flagged by Analyzer 0 % (0-5); Neutrophil # 2.36 X10^3/uL (2.7-7.7); Neutrophil % 35.7 % (47-70); Platelet Count 318 K/mm3 (150-450); RBC Distribution Width CV 13.2 % (11.6-14.6); RBC Distribution Width SD 48.1 fl (35.1-43.9); Red Blood Count 4.02 M/mm3 (4.2-5.4); White Blood Count 6.6 K/mm3 (4.4-11.0)
[2024-02-17 13:00] VITALS: BP 125/69; PULSE 65; RESP 20; O2SAT 98
[2024-02-17 13:07] LABS: D-Dimer Quantitative (DVT/PE) 0.38 FEU/ug/m (0.27-0.49)
[2024-02-17 13:21] LABS: AST(SGOT) 23 U/L (15-37); Alanine Aminotransfer ALT/SGPT 21 U/L (13-56); Albumin, Serum 3.3 g/dL (3.2-5.0); Alkaline Phosphatase 84 U/L (45-117); Anion Gap 4 (5-15); BUN 9 mg/dL (7-18); BUN/Creat Ratio 13.2 RATIO (10-20); Bilirubin, Direct 0.09 mg/dL (0.00-0.30); Chloride 108 mmol/L (98-107); Creatinine, Serum 0.68 mg/dL (0.55-1.02); EST Glomerular Filtration Rate 93 mL/min (>60); Est Glom Filt Rate - Afr Amer 113 mL/min (>60); Estimated Creatinine Clearance 87.16 ml/min; Globulin 3.8 g/dL (2.2-4.2); Glucose 88 mg/dL (74-106); Lipase 28 U/L (13-75); Potassium 3.4 mmol/L (3.5-5.1); Protein, Total 7.1 g/dL (6.4-8.2); Sodium Level 140 mmol/L (136-145); Troponin-I HS (w/2H Reflex) 4 pg/mL (3.0-54.0)
[2024-02-17 14:00] VITALS: BP 124/69; PULSE 67; RESP 23; O2SAT 100
--- NOTE | 2024-02-17 14:19 | ED.VIS.CHEST ---
HPI History of Present Illness Chief Complaint: Chest Pain Informant: patient Narrative Narrative: Patient is a 58-year-old female with history of tobacco use presenting with chest discomfort. Patient states has been going intermittently for the past week. She states she will get sharp pain underneath her left breast. She has associated nausea is also had some diarrhea. She will have some shortness of breath which she feels is a tightness in that area of her chest. She has had a cough that been productive of phlegm over the past week. Denies any blood in her phlegm. Denies any associated fever or leg swelling. Does not have any history of pneumonia but does have a history of mitral valve prolapse. Denies any associate abdominal pain. No blood in her stool reported. No change with her symptoms with exertion or oral intake. Does feel that she has had decreased appetite. Has been reported intermittent palpitations as well for the last week. She went to urgent care and they recommend she come to the ER for further evaluation. No other complaints at this time. [facility] Medical History GERD (gastroesophageal reflux disease) Osteoarthritis tubal MVP (mitral valve prolapse) Knee pain Hay fever Anemia Hemorrhoids Arthritis Home Medications ?Medication ?Instructions ?Recorded ?Last Taken ?Type famotidine 20 mg tablet (Pepcid) 20 mg PO BID #30 tabs 02/12/21 Unknown Rx albuterol sulfate 90 mcg/actuation 2 puff inhalation Q4H PRN PRN 02/18/21 Unknown Rx aerosol inhaler (Ventolin HFA) Wheezing ##1 ondansetron 4 mg disintegrating 4 mg PO Q6H PRN PRN Nausea #15 tabs 02/18/21 Unknown Rx tablet Allergy/AdvReac Type Severity Reaction Status Date / Time bee venom protein (honey bee) Allergy Hives Verified 02/17/24 11:39 Penicillins Allergy Hives Verified 02/17/24 11:39 Surgical History Encounter for blood transfusion Status post surgical removal of both fallopian tubes Social History Smoking Status: Current every day smoker tobacco type: cigarettes alcohol intake: current alcohol intake frequency: a few times a week ROS ROS ED Constitutional Constitutional ED: Denies chills or fever(s) Cardiovascular Cardiovascular: Reports as per HPI and chest pain Respiratory/Chest Respiratory/Chest: Reports cough, dyspnea and sputum Gastrointestinal Gastrointestinal: Reports nausea; Denies abdominal pain, diarrhea or vomiting Musculoskeletal Musculoskeletal: Denies arthralgias or myalgias Integumentary Denies rash Neurologic Neurologic: Denies headache(s) Hematologic/Lymphatic Hematologic/Lymphatic: Denies easy bleeding or easy bruising EXAM Physical Exam Const Vital Signs: 02/17/24 11:37 02/17/24 11:44 02/17/24 12:10 Temperature 97.2 F L Temperature Source Temporal Pulse Rate 69 66 Respiratory Rate 15 13 Respiratory Effort Normal Non-Labored Respiratory Pattern Normal Blood Pressure 153/74 H 124/68 H Blood Pressure Mean 100 86 Pulse Ox 100 99 Oxygen Delivery Method Room Air Room Air 02/17/24 12:34 02/17/24 13:00 02/17/24 14:00 Temperature Temperature Source Pulse Rate 65 67 Respiratory Rate 20 H 23 H Respiratory Effort Respiratory Pattern Blood Pressure 125/69 H 124/69 H Blood Pressure Mean 87 87 Pulse Ox 97 98 100 Oxygen Delivery Method Room Air 02/17/24 15:00 Temperature Temperature Source Pulse Rate 72 Respiratory Rate 20 H Respiratory Effort Respiratory Pattern Blood Pressure 115/72 Blood Pressure Mean 86 Pulse Ox 93 Oxygen Delivery Method Positive well nourished and well developed General Appearance ED: well developed and NAD HEENT Reports moist mucous membranes Eyes PERRL Neck no JVD Chest Wall inspection of chest normal and palpation of chest normal Resp normal respiratory effort and clear to auscultation bilaterally Auscultation: Negative for wheezes or diminished lung sounds Cardio regular rate and regular rhythm GI normal to inspection, nondistended, normoactive bowel sounds and soft to palpation Extremity normal to inspection Neuro oriented x3 Sensorium / Orientation: awake and alert Motor Exam: Negative for general weakness Psych mental status grossly normal Skin no rashes or lesions noted Heart Score History: Slightly/Non-Suspicious ECG: Normal Age: >45 - <65 years Risk Factors: 1 or 2 Risk Factors Troponin: </= Normal Limit Score: 2 MDM MDM MDM Narrative Medical decision making narrative: Patient is 58-year-old female presenting with intermittent chest pain for the past week. She is also had some associated nausea, diarrhea, reflux and tightness in her chest. The chest discomfort seems to be more on underneath her left breast. She has had some associated cough. Patient's initial vital signs significant for hypertension otherwise normal. She is nontoxic and well-appearing. Differential includes was not limited to ACS, arrhythmia, pneumonia, PE, viral syndrome and dehydration/GAIL. Workup is initiated including delta troponin as patient had intermittent chest pain. Workup largely normal including chest x-ray, EKG and delta high-sensitivity troponin. Discussed with patient prior to the second high-sensitivity troponin resulting that it is possible her symptoms could be viral in nature versus reflux related however cannot definitively tell. Discussed that she does not have findings consistent with pulmonary emboli or ACS at this time. We discussed outpatient follow-up with PCP and prescribing albuterol and antacid as needed for symptom control. She was amenable. Once delta troponin resulted I went to talk to her about her final results and confirm plan however patient had left the emergency room. Will still send her prescriptions and as we previously discussed it and patient had been agreeable with this plan of care. Lab Data Attestation: I reviewed the patient's lab results. Labs: Laboratory Results - last 24 hr 02/17/24 02/17/24 11:57 14:49 WBC 6.6 RBC 4.02 L Hgb 12.7 Hct 39.3 MCV 97.8 MCH 31.6 MCHC 32.3 RDW Std Deviation 48.1 H RDW Coeff of Kyrie 13.2 Plt Count 318 MPV 9.5 Immature Gran % (Auto) 0.200 Neut % (Auto) 35.7 L Lymph % (Auto) 58.8 H [place] % (Auto) 4.3 Eos % (Auto) 0.8 Baso % (Auto) 0.2 Absolute Neuts (auto) 2.4 Absolute Lymphs (auto) 3.86 Nucleated RBC % 0 D-Dimer Quant (PE/DVT) 0.38 Sodium 140 Potassium 3.4 L Chloride 108 H Carbon Dioxide 28.0 Anion Gap 4 L BUN 9 Creatinine 0.68 Estim Creat Clear Calc 87.16 Est GFR (MDRD) Af Amer 113 Est GFR (MDRD) Non-Af 93 BUN/Creatinine Ratio 13.2 Glucose 88 Calcium 9.0 Total Bilirubin 0.30 Direct Bilirubin 0.09 AST 23 ALT 21 Alkaline Phosphatase 84 Troponin I High Sens 4 5 Total Protein 7.1 Albumin 3.3 Globulin 3.8 Lipase 28 Radiography Diagnostic Testing: Clinical Impression(s) from Imaging Studies Chest X-Ray 02/17/24 12:40 IMPRESSION: Normal x-ray examination of the chest. Electronically Signed: Everett Stephens MD at 13:05 EDT , Rhythm Strip Rhythm Strip: Sinus Rhythm Rate: 65 Ectopy: None EKG Initial EKG: Attestation: I personally reviewed and interpreted this EKG as follows: Interpretation: Sinus Rhythm Comments: Normal sinus rhythm rate of 65 bpm Normal axis Normal intervals Normal ST segments Prior EKG tracings: available for review Prior: Unchanged Differential Diagnosis Chest pain/SOB: pulmonary embolism Reason(s) PE less likely: Positive for D-Dimer negative, not tachycardic and not hypoxic, ACS ACS: Positive for no evidence of ACS based on cardiac biomarkers, EKG without ischemia and history not suggestive of ischemia pain, pneumonia Reason(s) pneumonia less likely: Positive for no infiltrate on CXR, no elevation in WBC count and no noted fever and CHF Reason(s) CHF less likely: Positive for no significant peripheral edema and no evidence of fluid overload on CXR Discharge Plan Triage Chief Complaint: Chest Pain ED Provider: Ana Maria Kaufman Dx/Rx/DC Orders Clinical Impression: Left-sided chest pain, Acute dyspnea Prescriptions: Continued famotidine [Pepcid] 20 mg tablet 20 mg PO BID Qty: 30 0RF ondansetron 4 MG tablet 4 mg PO Q6H PRN PRN (Reason: Nausea) Qty: 15 0RF albuterol sulfate [Ventolin HFA] 1 INHALER inhaler 2 puff inhalation Q4H PRN PRN (Reason: Wheezing) Qty: 1 0RF Rx Instructions: Dispense with spacer Primary Care Provider: Dario Baptiste Referrals: Dario Baptiste MD [Primary Care Provider] - Print Language: Luxembourger Disposition Disposition: Elopement
[2024-02-17 14:45] LABS: Reflex Troponin-HS? (from REC) Y
[2024-02-17 15:00] VITALS: BP 115/72; PULSE 72; RESP 20; O2SAT 93
[2024-02-17 15:13] LABS: Troponin-I HS 5 pg/mL (3.0-54.0)
--- NOTE | 2024-02-17 16:13 | ED.RN ---
Patient eloped. IV was found and was intact.
== END 2024-02-17 16:14 | disposition left against medical advice (07) ==
PROVIDERS: Emergency Provider Emergency Medicine; PCP Family Medicine; Visit Provider Emergency Medicine
DX: R07.89 Other chest pain (principal); R06.00 Dyspnea, unspecified; F17.210 Nicotine dependence, cigarettes, uncomplicated
CPT/HCPCS: 71046; 80048; 80076; 83690; 84484; 85025; 85379; 93005; 99284; A4216